=== PATIENT | female | born 1985 | race Caucasian/White ===

== ENCOUNTER 2016-08-09 16:01 | Outpatient (CLI) | payer MEDICAID ==
[~2016-08-09] VITALS: Ht 154.9 cm; Wt 53.6 kg
[2016-08-09 16:26] VITALS: BP 117/62
[2016-08-09] MEDS ORDERED: PREN1TAB60 PO (16:43)
[2016-08-09 17:04] LABS: ASPARTATE AMINO TRANSFERASE 12 U/L (15-37); BLOOD UREA NITROGEN 9 mg/dL (7-18)
[2016-08-09] MEDS ORDERED: INDOMETHACIN 50 MG CAPSULE PO ONE (19:00)
== END 2016-08-09 18:52 | disposition home or self-care (01) ==
LOC: LDOP 16:01
PROVIDERS: ATTEND Obstetrics & Gynecology
DX: O26.892 Other specified pregnancy related conditions, second trimester (principal); O44.02 Complete placenta previa NOS or without hemorrhage, second trimester; O34.12 Maternal care for benign tumor of corpus uteri, second trimester; O34.42 Maternal care for other abnormalities of cervix, second trimester; D25.1 Intramural leiomyoma of uterus; R10.11 Right upper quadrant pain; R51 Headache; Z3A.23 23 weeks gestation of pregnancy
CPT/HCPCS: 36415; 59025; 76705; 76815; 80053; 81001; 82731; 84550; 85025; 87086; 87491; 87591; 99211; G0463

== ENCOUNTER 2016-10-04 17:31 | Inpatient (IN) | payer MEDICAID ==
[~2016-10-04] VITALS: Ht 157.5 cm; Wt 54.8 kg
[~2016-10-04 17:31] MED LIST: PREN1TAB60 PO
[2016-10-04 17:40] VITALS: BP 107/57
[2016-10-04] MEDS ORDERED: BETAMETHASONE 6 MG/ML, 5ML IM ONE (20:23)
[2016-10-04] MEDS ORDERED: ZOLPIDEM 10MG TABLET PO PRN (20:30)
[2016-10-04] MEDS: BETAMETHASONE 6 MG/ML, 5ML IM SCH (20:30)
[2016-10-04] MEDS ORDERED: ZOLPIDEM 5MG TABLET PO PRN (20:30)
[2016-10-04] MEDS ORDERED: CALCIUM CARBONATE 500 MG TAB.CHEW PO PRN (20:30)
[2016-10-04] MEDS: AZITHROMYCIN 500 MG in SODIUM CHLORIDE 0.9% 250 ML IV SCH (21:13)
[2016-10-04] MEDS: AMPICILLIN 1 GM in SODIUM CHLORIDE 0.9% 50 ML IV SCH (22:19)
[2016-10-05] MEDS: AMPICILLIN 1 GM in SODIUM CHLORIDE 0.9% 50 ML IV SCH ×5 (04:07→23:19)
[2016-10-05 08:10] VITALS: BP 101/73
[2016-10-05 12:30] VITALS: BP 118/60
[2016-10-05] MEDS ORDERED: DOCUSATE 100 MG CAPSULE ONE (13:11)
[2016-10-05] MEDS: LACTATED RINGERS 1,000 ML IV PRN ×2 (16:43→17:15)
[2016-10-05] MEDS ORDERED: BETAMETHASONE 6 MG/ML, 5ML IM ONE (20:27)
[2016-10-05 20:30] VITALS: BP 114/64
[2016-10-05] MEDS: AZITHROMYCIN 500 MG in SODIUM CHLORIDE 0.9% 250 ML IV SCH (20:33)
[2016-10-05] MEDS: BETAMETHASONE 6 MG/ML, 5ML IM SCH (20:49)
[2016-10-05] MEDS: DOCUSATE 100 MG CAPSULE PO SCH (20:50)
[2016-10-06 03:20] VITALS: BP 94/52
[2016-10-06] MEDS: AMPICILLIN 1 GM in SODIUM CHLORIDE 0.9% 50 ML IV SCH ×3 (05:22→18:19)
[2016-10-06] MEDS: LACTATED RINGERS 1,000 ML IV PRN ×2 (07:49→20:30)
[2016-10-06] MEDS: DOCUSATE 100 MG CAPSULE PO SCH ×2 (09:00→21:00)
[2016-10-06] MEDS ORDERED: DOCUSATE 100 MG CAPSULE ONE (12:36)
[2016-10-06] MEDS ORDERED: PRENATAL VIT/IRON/FA 1 EACH TABLET PO SCH (13:00)
[2016-10-06 16:36] LABS: DAU SCREEN DISCLAIMER
[2016-10-06] MEDS: AZITHROMYCIN 500 MG in SODIUM CHLORIDE 0.9% 250 ML IV SCH (20:33)
[2016-10-07] MEDS: AMPICILLIN 1 GM in SODIUM CHLORIDE 0.9% 50 ML IV SCH ×4 (00:13→17:42)
[2016-10-07] MEDS: PRENATAL VIT/IRON/FA 1 EACH TABLET PO SCH (09:00)
[2016-10-07] MEDS: DOCUSATE 100 MG CAPSULE PO SCH ×2 (09:00→21:00)
[2016-10-07] MEDS: LACTATED RINGERS 1,000 ML IV PRN (09:59)
[2016-10-07 10:02] VITALS: BP 104/60
[2016-10-07] MEDS: AZITHROMYCIN 500 MG in SODIUM CHLORIDE 0.9% 250 ML IV SCH (20:39)
[2016-10-08] MEDS ORDERED: DIPHENHYDRAMINE 25 MG CAPSULE PO PRN (00:05)
[2016-10-08] MEDS ORDERED: DIPHENHYDRAMINE 25 MG CAPSULE ONE (00:05)
[2016-10-08] MEDS: AMPICILLIN 1 GM in SODIUM CHLORIDE 0.9% 50 ML IV SCH ×3 (00:08→11:33)
[2016-10-08] MEDS: PRENATAL VIT/IRON/FA 1 EACH TABLET PO SCH (09:00)
[2016-10-08] MEDS: DOCUSATE 100 MG CAPSULE PO SCH ×2 (09:00→20:39)
[2016-10-08] MEDS ORDERED: DOCUSATE 100 MG CAPSULE ONE (09:35)
[2016-10-08] MEDS ORDERED: PRENATAL VIT/IRON/FA 1 EACH TABLET ONE (09:35)
[2016-10-08] MEDS: AMPICILLIN 500MG CAPSULE PO SCH (18:15)
[2016-10-08] MEDS: AZITHROMYCIN 500 MG TABLET PO SCH (20:39)
[2016-10-08] MEDS: SODIUM CHLORIDE FLUSH 3ML SYRINGE IVF SCH (20:39)
[2016-10-09] MEDS: AMPICILLIN 500MG CAPSULE PO SCH ×4 (00:06→18:01)
[2016-10-09] MEDS: DOCUSATE 100 MG CAPSULE PO SCH ×2 (09:00→21:00)
[2016-10-09] MEDS: PRENATAL VIT/IRON/FA 1 EACH TABLET PO SCH (09:00)
[2016-10-09] MEDS ORDERED: DOCUSATE 100 MG CAPSULE ONE (09:44)
[2016-10-09] MEDS: SODIUM CHLORIDE FLUSH 3ML SYRINGE IVF SCH ×2 (09:45→21:00)
[2016-10-09 09:47] VITALS: BP 102/58
[2016-10-09 19:49] VITALS: BP 110/56
[2016-10-09] MEDS: AZITHROMYCIN 500 MG TABLET PO SCH ×2 (20:44→20:45)
[2016-10-10] MEDS: AMPICILLIN 500MG CAPSULE PO SCH ×5 (00:23→23:55)
[2016-10-10] MEDS: PRENATAL VIT/IRON/FA 1 EACH TABLET PO SCH (09:00)
[2016-10-10] MEDS ORDERED: DOCUSATE 100 MG CAPSULE ONE (13:02)
[2016-10-10] MEDS: DOCUSATE 100 MG CAPSULE PO SCH ×2 (13:02→21:00)
[2016-10-10] MEDS: SODIUM CHLORIDE FLUSH 3ML SYRINGE IVF SCH ×2 (13:02→20:32)
[2016-10-10 20:23] VITALS: BP 106/58
[2016-10-11] MEDS: AMPICILLIN 500MG CAPSULE PO SCH (05:40)
[2016-10-11] MEDS: SODIUM CHLORIDE FLUSH 3ML SYRINGE IVF SCH ×2 (09:00→21:00)
[2016-10-11] MEDS: PRENATAL VIT/IRON/FA 1 EACH TABLET PO SCH (09:00)
[2016-10-11] MEDS: DOCUSATE 100 MG CAPSULE PO SCH ×2 (09:00→21:00)
[2016-10-11 12:00] VITALS: BP 115/71
[2016-10-12] MEDS: DOCUSATE 100 MG CAPSULE PO SCH ×2 (09:00→21:00)
[2016-10-12] MEDS: PRENATAL VIT/IRON/FA 1 EACH TABLET PO SCH (09:00)
[2016-10-12] MEDS: SODIUM CHLORIDE FLUSH 3ML SYRINGE IVF SCH (09:00)
[2016-10-12 12:00] VITALS: BP 122/62
[2016-10-12 19:27] VITALS: BP 106/59
[2016-10-13] MEDS: PRENATAL VIT/IRON/FA 1 EACH TABLET PO SCH (09:00)
[2016-10-13] MEDS: DOCUSATE 100 MG CAPSULE PO SCH ×2 (09:00→21:00)
[2016-10-13 10:15] VITALS: BP 104/64
[2016-10-14 08:00] VITALS: BP 112/56
[2016-10-14] MEDS: DOCUSATE 100 MG CAPSULE PO SCH ×2 (09:00→21:00)
[2016-10-14] MEDS: PRENATAL VIT/IRON/FA 1 EACH TABLET PO SCH (09:00)
[2016-10-15] MEDS: DOCUSATE 100 MG CAPSULE PO SCH ×2 (09:00→21:00)
[2016-10-15] MEDS: PRENATAL VIT/IRON/FA 1 EACH TABLET PO SCH (09:00)
[2016-10-15 11:15] VITALS: BP 105/55
[2016-10-16] MEDS: DOCUSATE 100 MG CAPSULE PO SCH ×2 (09:00→21:00)
[2016-10-16] MEDS: PRENATAL VIT/IRON/FA 1 EACH TABLET PO SCH (09:00)
[2016-10-16 11:15] VITALS: BP 113/66
[2016-10-16] MEDS ORDERED: OXYTOCIN 30U/ 0.9% NaCL 500ML 500 ML IV ONE (19:25)
[2016-10-16] MEDS ORDERED: D5%-LACTATED RINGERS 1,000 ML IV SCH (19:25)
[2016-10-16] MEDS ORDERED: AMPICILLIN 2 GM in SODIUM CHLORIDE 0.9% 100 ML IVPB STA (19:25)
[2016-10-16] MEDS ORDERED: LACTATED RINGERS 1,000 ML IV SCH (19:25)
[2016-10-16] MEDS ORDERED: TERBUTALINE 1 MG/ML, 1ML SQ PRN (19:30)
[2016-10-16] MEDS ORDERED: FENTANYL PF 100 MCG/2ML IV PRN (19:30)
[2016-10-16] MEDS: AMPICILLIN 1 GM in SODIUM CHLORIDE 0.9% 50 ML IVPB SCH ×2 (19:30→23:30)
[2016-10-16] MEDS ORDERED: FENTANYL PF 100 MCG/2ML ONE (19:30)
[2016-10-16] MEDS ORDERED: FENTANYL PF 100 MCG/2ML IVPush PRN (19:30)
[2016-10-16] MEDS ORDERED: ONDANSETRON 2MG/ML, 2ML IVPush PRN (19:30)
[2016-10-16] MEDS ORDERED: FENTANYL/BUPIV./NS/PF 250 ML EPIDCONT ONE ×2 (20:15→20:20)
[2016-10-16] MEDS ORDERED: EPHEDRINE 50 MG/ML, 1ML ONE (20:20)
[2016-10-16] MEDS ORDERED: LIDOCAINE/PF 1.5%-EPI 1:200K, 30ML ONE (20:20)
[2016-10-16] MEDS ORDERED: LIDOCAINE 1%, 20ML ONE (20:20)
[2016-10-16] MEDS ORDERED: NEWBORN KIT ONE (21:07)
[2016-10-16] MEDS ORDERED: OXYTOCIN 30U/ 0.9% NaCL 500ML 500 ML ONE (21:07)
[2016-10-16] MEDS ORDERED: FENTANYL/BUPIV./NS/PF 250 ML EPIDCONT SCH (21:30)
[2016-10-16] MEDS: LACTATED RINGERS 1,000 ML IV SCH (21:30)
[2016-10-16] MEDS ORDERED: LACTATED RINGERS 1,000 ML IVBOLUS PRN (21:30)
[2016-10-16] MEDS ORDERED: EPHEDRINE 50 MG/ML, 1ML IVPush PRN (21:30)
[2016-10-16] MEDS ORDERED: NALOXONE 0.4 MG/ML, 1ML IVPush PRN (21:30)
[2016-10-17] MEDS ORDERED: DOCUSATE 100 MG CAPSULE PO PRN (00:30)
[2016-10-17] MEDS ORDERED: ONDANSETRON 2MG/ML, 2ML IV PRN (00:30)
[2016-10-17] MEDS ORDERED: ACETAMINOPHEN 325 MG TABLET PO PRN (00:30)
[2016-10-17] MEDS ORDERED: OXYcodone/APAP 5/325MG TABLET PO PRN ×2 (00:30)
[2016-10-17] MEDS ORDERED: MISOPROSTOL 200 MCG TABLET PR PRN (00:30)
[2016-10-17] MEDS ORDERED: IBUPROFEN 600 MG TABLET ONE (00:59)
[2016-10-17] MEDS: IBUPROFEN 600 MG TABLET PO PRN ×2 (01:02→21:51)
[2016-10-17] MEDS ORDERED: OXYTOCIN 30U/ 0.9% NaCL 500ML 500 ML ONE (01:05)
[2016-10-17] MEDS: OXYTOCIN 30U/ 0.9% NaCL 500ML 500 ML IV SCH ×3 (01:16→20:03)
[2016-10-17 01:50] VITALS: BP 105/58
[2016-10-17] MEDS: ACETAMINOPHEN 325 MG TABLET PO PRN ×4 (02:39→21:51)
[2016-10-17 05:30] VITALS: BP 90/49
[2016-10-17] MEDS: LACTATED RINGERS 1,000 ML IV SCH ×2 (05:30→06:25)
[2016-10-17 07:15] VITALS: BP 95/55
[2016-10-17 11:51] LABS: DAU SCREEN DISCLAIMER
[2016-10-17] MEDS: PRENATAL VIT/IRON/FA 1 EACH TABLET PO SCH (11:55)
[2016-10-17 12:00] VITALS: BP 100/66
[2016-10-17 20:00] VITALS: BP 109/72
[2016-10-18] MEDS: ACETAMINOPHEN 325 MG TABLET PO PRN (04:20)
[2016-10-18] MEDS: IBUPROFEN 600 MG TABLET PO PRN ×3 (04:20→16:10)
[2016-10-18] MEDS: OXYTOCIN 30U/ 0.9% NaCL 500ML 500 ML IV SCH ×2 (06:03→16:03)
[2016-10-18 07:20] VITALS: BP 103/63
[2016-10-18] MEDS: PRENATAL VIT/IRON/FA 1 EACH TABLET PO SCH (10:11)
[2016-10-18] MEDS ORDERED: IBUP-1222 PO (11:13)
[2016-10-18] MEDS: LACTATED RINGERS 1,000 ML IV SCH (13:30)
== END 2016-10-18 18:25 | disposition home or self-care (01) | DRG 775 ==
LOC: LDOP 17:31 → LDIP 18:35 → 2NW 10-17 01:38
PROVIDERS: ADMIT Obstetrics & Gynecology; ATTEND Obstetrics & Gynecology
PROC: 10E0XZZ Delivery of Products of Conception, External Approach (ICD-10-PCS; principal; 2016-10-17)
PROC: 3E0R3CZ (ICD-10-PCS; 2016-10-17)
PROC: 00HU33Z Insertion of Infusion Device into Spinal Canal, Percutaneous Approach (ICD-10-PCS; 2016-10-17)
DX: O42.913 Preterm premature rupture of membranes, unspecified as to length of time between rupture and onset of labor, third trimester (principal); O60.14X0 Preterm labor third trimester with preterm delivery third trimester, not applicable or unspecified; O99.324 Drug use complicating childbirth; F12.90 Cannabis use, unspecified, uncomplicated; Z88.6 Allergy status to analgesic agent; Z37.0 Single live birth; Z3A.31 31 weeks gestation of pregnancy
CPT/HCPCS: 36415; 80307; 81003; 82803; 85025; 86850; 86900; 87070; 87075; 87081; 87086; 87205; 88307; 89060; J0290; J0456; J0702; J3490; J2590; J3010; J7050; J7120; Q0114; Q0163